=== PATIENT | male | born 1945 | race Two or more races ===

== ENCOUNTER → 2018-01-01 | Outpatient (REF) | payer MEDICARE ==
[2018-01-01 12:10] LABS: ANION GAP 8 MEQ/L (8-16); BLOOD UREA NITROGEN 18 MG/DL (7-18); CALCIUM LEVEL 8.8 MG/DL (8.8-10.2); CARBON DIOXIDE LEVEL 28 MEQ/L (21-32); CHLORIDE LEVEL 106 MEQ/L (98-107); CREATININE FOR GFR 0.81 MG/DL (0.70-1.30); GLOMERULAR FILTRATION RATE > 60.0 (>42); GLUCOSE, FASTING 101 MG/DL (70-100); POTASSIUM SERUM 5.1 MEQ/L (3.5-5.1); SODIUM LEVEL 142 MEQ/L (136-145)
== END ==
LOC: M SFHCCLAY 08:20
DX: E78.5 Hyperlipidemia, unspecified (principal); Z12.11 Encounter for screening for malignant neoplasm of colon
CPT/HCPCS: 80048

== ENCOUNTER → 2021-04-06 | Outpatient (CLI) | payer MEDICARE ==
--- NOTE | 2021-04-06 10:41 | REP ---
INDICATION: M25.552, LEFT HIP PAIN Nontraumatic hip pain. COMPARISON: None. TECHNIQUE: Frontal view of the pelvis with neutral and frog lateral views of the left hip. FINDINGS: Orthopedic fixation through the visualized lower lumbar spine and bilateral sacroiliac bones. Underlying age-related osteopenia and degenerative changes are appreciated. Left hip demonstrates relatively mild degenerative changes including increased sclerosis to the acetabular roof with mild joint space narrowing. No overt osteophytosis or periarticular calcifications/loose bodies. No acute fracture or dislocation. IMPRESSION: Generalized age-related degenerative changes. <Electronically signed by Moses Herrera > 04/06/21 1037
--- NOTE | 2021-04-06 11:49 | REP ---
INDICATION: M25.552, LEFT HIP PAIN COMPARISON: None TECHNIQUE: AP, lateral, bilateral oblique, and coned-down views of the lumbar spine. FINDINGS: Postsurgical changes including Lang rods through the lower thoracic through mid sacral level along with stabilization through the sacroiliac bones. Overlying diffuse wavy bridging osteophytosis and syndesmophytes are noted. Further chronic degenerative changes include endplate sclerosis, osteophytosis and disc space narrowing. IMPRESSION: Chronic appearing postsurgical and degenerative changes. <Electronically signed by Moses Herrera > 04/06/21 2401
== END ==
LOC: M CLY 09:33
PROVIDERS: ATTEND Family Medicine
DX: M85.88 Other specified disorders of bone density and structure, other site (principal); M51.36 Other intervertebral disc degeneration, lumbar region; M25.78 Osteophyte, vertebrae; M25.552 Pain in left hip

== ENCOUNTER → 2022-04-04 | Outpatient (CLI) | payer MEDICARE ==
[2022-04-04 11:20] LABS: HEMATOCRIT 43.9 % (42.0-52.0); HEMOGLOBIN 14.5 g/dl (13.5-17.5); MEAN CORPUSCULAR HEMOGLOBIN 32.2 pg (27.0-33.0); MEAN CORPUSCULAR VOLUME 97.6 fl (80.0-96.0); PLATELET COUNT, AUTOMATED 198 10^3/uL (150-450)
[2022-04-04 11:31] LABS: INR 0.98; PARTIAL THROMBOPLASTIN TIME 27.4 SECONDS (24.8-34.2); PROTHROMBIN TIME 13.2 SECONDS (12.5-14.5)
[2022-04-04 12:07] LABS: BLOOD UREA NITROGEN 22 MG/DL (9-23); CALCIUM LEVEL 8.9 MG/DL (8.3-10.6); CARBON DIOXIDE LEVEL 29 MMOL/L (20-31); CHLORIDE LEVEL 98 MMOL/L (98-107); CREATININE FOR GFR 0.92 MG/DL (0.70-1.30); GLOMERULAR FILTRATION RATE > 60.0 (>42); GLUCOSE, FASTING 110 MG/DL (74-106); POTASSIUM SERUM 4.2 MMOL/L (3.5-5.1); SODIUM LEVEL 137 MMOL/L (136-145)
== END ==
LOC: M CLY 09:13
PROVIDERS: ATTEND Orthopaedic Surgery
DX: Z01.818 Encounter for other preprocedural examination (principal); M47.14 Other spondylosis with myelopathy, thoracic region

== ENCOUNTER → 2022-04-06 | Outpatient (REF) | payer MEDICARE ==
[2022-04-06 17:51] LABS: APPEARANCE, URINE MANUAL CLEAR (CLEAR); BILIRUBIN, URINE MANUAL NEGATIVE (NEGATIVE); BLOOD URINE MANUAL NEGATIVE (NEGATIVE); COLOR, URINE MANUAL LT YELLOW (YELLOW); GLUCOSE, URINE (UA) MANUAL NEGATIVE (NEGATIVE); KETONE, URINE MANUAL NEGATIVE (NEGATIVE); LEUKOCYTE ESTERASE, URINE MAN NEGATIVE (NEGATIVE); NITRITE, URINE MANUAL NEGATIVE (NEGATIVE); PROTEIN, URINE MANUAL NEGATIVE (NEGATIVE); UROBILINOGEN, URINE MANUAL NORMAL (NORMAL)
== END ==
LOC: M SFHCCLAY 07:40
PROVIDERS: ATTEND Family Medicine
DX: Z01.818 Encounter for other preprocedural examination (principal); I10 Essential (primary) hypertension; E78.5 Hyperlipidemia, unspecified; M48.061 Spinal stenosis, lumbar region without neurogenic claudication; M47.14 Other spondylosis with myelopathy, thoracic region; Z79.899 Other long term (current) drug therapy

== ENCOUNTER → 2022-04-17 | Outpatient (CLI) | payer MEDICARE | LOC: M LABSMTC 09:12 | PROVIDERS: ATTEND Orthopaedic Surgery | DX: Z01.812 Encounter for preprocedural laboratory examination (principal); Z11.52 Encounter for screening for COVID-19 ==

== ENCOUNTER → 2022-08-29 | Outpatient (REF) | payer MEDICARE ==
[2022-08-29 12:07] LABS: BASO # 0.1 10^3/uL (0.0-0.2); BASO % 1.2 % (0.0-1.0); EOS # 0.2 10^3/uL (0.0-0.5); EOS % 4.2 % (0.0-3.0); HEMATOCRIT 43.3 % (42.0-52.0); HEMOGLOBIN 14.5 g/dl (13.5-17.5); LYMPH # 1.5 10^3/uL (1.5-5.0); LYMPH % 25.7 % (24.0-44.0); MEAN CORPUSCULAR HEMOGLOBIN 31.8 pg (27.0-33.0); MEAN CORPUSCULAR HGB CONC 33.5 g/dl (32.0-36.5); MONO # 0.9 10^3/uL (0.0-0.8); MONO % 15.4 % (2.0-8.0); NEUTROPHILS % 52.6 % (36.0-66.0); PLATELET COUNT, AUTOMATED 178 10^3/uL (150-450); RED BLOOD COUNT 4.56 10^6/uL (4.30-6.10); WHITE BLOOD COUNT 5.7 10^3/uL (4.0-10.0)
[2022-08-29 12:34] LABS: BLOOD UREA NITROGEN 17 MG/DL (9-23); CALCIUM LEVEL 8.6 MG/DL (8.3-10.6); CARBON DIOXIDE LEVEL 30 MMOL/L (20-31); CHLORIDE LEVEL 101 MMOL/L (98-107); CREATININE FOR GFR 0.94 MG/DL (0.70-1.30); GLOMERULAR FILTRATION RATE > 60.0 (>42); GLUCOSE, FASTING 103 MG/DL (74-106); POTASSIUM SERUM 4.4 MMOL/L (3.5-5.1); SODIUM LEVEL 137 MMOL/L (136-145)
== END ==
LOC: M SFHCCLAY 08:11
PROVIDERS: ATTEND Family Medicine
DX: M15.9 Polyosteoarthritis, unspecified (principal); I10 Essential (primary) hypertension

== ENCOUNTER → 2023-06-30 | Outpatient (REF) | payer MEDICARE ==
[2023-06-30 16:38] LABS: HEMOGLOBIN 15.3 g/dl (13.5-17.5); MEAN CORPUSCULAR HEMOGLOBIN 31.8 pg (27.0-33.0); MEAN CORPUSCULAR HGB CONC 33.3 g/dl (32.0-36.5); MEAN CORPUSCULAR VOLUME 95.6 fl (80.0-96.0); PLATELET COUNT, AUTOMATED 180 10^3/uL (150-450); RED BLOOD COUNT 4.81 10^6/uL (4.30-6.10); WHITE BLOOD COUNT 6.4 10^3/uL (4.0-10.0)
[2023-06-30 17:12] LABS: ALBUMIN 4.2 G/DL (3.2-5.2); ALKALINE PHOSPHATASE 71 U/L (46-116); ALT/SGPT 15 U/L (7.0-40); AST/SGOT 13 U/L (<34); BILIRUBIN,TOTAL 0.9 MG/DL (0.3-1.2); BLOOD UREA NITROGEN 17 MG/DL (9-23); CALCIUM LEVEL 9.2 MG/DL (8.3-10.6); CARBON DIOXIDE LEVEL 30 MMOL/L (20-31); CHLORIDE LEVEL 102 MMOL/L (98-107); CHOLESTEROL LEVEL 220 MG/DL (<200); CHOLESTEROL RISK RATIO 4.26 (<5); CREATININE FOR GFR 0.86 MG/DL (0.70-1.30); GLOMERULAR FILTRATION RATE > 60.0 (>42); GLUCOSE, FASTING 103 MG/DL (74-106); HDL CHOLESTEROL 51.6 MG/DL (>40); NON-HDL-C 168.4 MG/DL; SODIUM LEVEL 136 MMOL/L (136-145); TOTAL PROTEIN 6.8 G/DL (5.7-8.2); TRIGLYCERIDES LEVEL 122 MG/DL (<150)
[2023-06-30 17:15] LABS: PSA SCREENING 0.67 NG/ML (< 4.00)
== END ==
LOC: M SFHCCLAY 09:56
PROVIDERS: ATTEND Family Medicine
DX: Z12.5 Encounter for screening for malignant neoplasm of prostate (principal); Z96.651 Presence of right artificial knee joint; I10 Essential (primary) hypertension
CPT/HCPCS: 80053; 80061; 85027; G0103

== ENCOUNTER → 2023-07-04 | Outpatient (REF) | payer MEDICARE ==
[2023-07-04 13:10] LABS: APPEARANCE, URINE CLEAR (CLEAR); BACTERIA, URINE AUTO NEGATIVE (NEGATIVE); BILIRUBIN, URINE AUTO NEGATIVE (NEGATIVE); BLOOD, URINE BLOOD NEGATIVE (NEGATIVE); COLOR, URINE YELLOW (YELLOW); GLUCOSE, URINE (UA) AUTO NEGATIVE (NEGATIVE); KETONE, URINE AUTO NEGATIVE (NEGATIVE); LEUKOCYTE ESTERASE, URINE AUTO NEGATIVE (NEGATIVE); MUCUS, URINE SMALL (NEGATIVE); NITRITE, URINE AUTO NEGATIVE (NEGATIVE); PROTEIN, URINE AUTO NEGATIVE (NEGATIVE); RBC, URINE AUTO 0 /HPF (0-3); SPECIFIC GRAVITY URINE AUTO 1.017 (1.002-1.035); SQUAMOUS EPITHELIAL CELL UR AU 0 /HPF (0-6); UROBILINOGEN, URINE AUTO 0.2 mg/dL (0.0-2.0); WBC, URINE AUTO 0 /HPF (0-3)
== END ==
LOC: M SFHCCLAY 11:20
PROVIDERS: ATTEND Family Medicine
DX: I10 Essential (primary) hypertension (principal); Z96.651 Presence of right artificial knee joint

== ENCOUNTER → 2023-11-30 | Outpatient (CLI) | payer OTHER, MEDICARE | LOC: M SLEEP HO 10:50 | PROVIDERS: ATTEND Internal Medicine | DX: G47.33 Obstructive sleep apnea (adult) (pediatric) (principal) ==

== ENCOUNTER 2023-12-28 19:48 | Inpatient (IN) | payer OTHER, MEDICARE ==
[2023-12-28 21:27] LABS: BASO % 0.2 % (0.0-1.0); EOS % 0.1 % (0.0-3.0); HEMATOCRIT 25.7 % (42.0-52.0); HEMOGLOBIN 8.8 g/dl (13.5-17.5); LYMPH % 7.8 % (24.0-44.0); MEAN CORPUSCULAR HEMOGLOBIN 33.1 pg (27.0-33.0); MEAN CORPUSCULAR HGB CONC 34.2 g/dl (32.0-36.5); MEAN CORPUSCULAR VOLUME 96.6 fl (80.0-96.0); MONO # 0.9 10^3/uL (0.0-0.8); MONO % 7.1 % (2.0-8.0); NEUTROPHILS # 10.4 10^3/uL (1.5-8.5); NEUTROPHILS % 83.8 % (36.0-66.0); PLATELET COUNT, AUTOMATED 177 10^3/uL (150-450); RED BLOOD COUNT 2.66 10^6/uL (4.30-6.10); WHITE BLOOD COUNT 12.4 10^3/uL (4.0-10.0)
[2023-12-28 21:38] LABS: INR 1.09; PROTHROMBIN TIME 13.8 SECONDS (12.5-14.5)
[2023-12-28 22:01] LABS: LIPASE 60 U/L (12-53)
[2023-12-28 22:03] LABS: ALBUMIN 3.1 G/DL (3.2-5.2); ALKALINE PHOSPHATASE 50 U/L (46-116); ALT/SGPT 15 U/L (7.0-40); AST/SGOT 12 U/L (<34); BILIRUBIN,DIRECT 0.2 MG/DL (<0.4); BILIRUBIN,TOTAL 0.6 MG/DL (0.3-1.2); BLOOD UREA NITROGEN 68 MG/DL (9-23); CARBON DIOXIDE LEVEL 25 MMOL/L (20-31); CHLORIDE LEVEL 104 MMOL/L (98-107); CK-MB VALUE MASS 2.4 NG/ML (<3.6); CPK CREATINE PHOSPHOKINASE 59 U/L (46-171); CREATININE FOR GFR 0.91 MG/DL (0.70-1.30); GLOMERULAR FILTRATION RATE > 60.0 (>42); GLUCOSE, FASTING 117 MG/DL (74-106); MB/CK RELATIVE INDEX 4.06 (< OR =4); POTASSIUM SERUM 4.2 MMOL/L (3.5-5.1); SODIUM LEVEL 134 MMOL/L (136-145); TOTAL PROTEIN 5.4 G/DL (5.7-8.2)
[2023-12-28] MEDS: PANTOPRAZOLE 40MG VIAL IV ONE (23:00)
[2023-12-28] MEDS: NS 1,000 ML IV ONE (23:00)
[2023-12-29] VITALS (22 sets, daily range): BP systolic 110–142; BP diastolic 53–77; TEMP 97–98.7; O2SAT 83–100
[2023-12-29] MEDS ORDERED: ISOVUE-370 76% 100ML VIAL As Ordered ONE (01:12)
[2023-12-29] MEDS ORDERED: GNP1000T11 PO (01:44)
[2023-12-29] MEDS ORDERED: ASPI-655 PO (01:44)
[2023-12-29] MEDS ORDERED: MELO15TA28 PO (01:44)
[2023-12-29] MEDS ORDERED: CLAR10TA7 PO (01:44)
[2023-12-29] MEDS ORDERED: LISI10TA24 PO (01:44)
[2023-12-29] MEDS ORDERED: GARL500C6 PO (01:44)
[2023-12-29] MEDS ORDERED: FLON1SPR NARES (01:44)
[2023-12-29] MEDS ORDERED: FLOM0.4C39 PO (01:44)
[2023-12-29] MEDS ORDERED: RA K500C PO (01:44)
[2023-12-29] MEDS ORDERED: HOME MED LIST COMPLETE! XX SCH (01:45)
[2023-12-29] MEDS ORDERED: ACETAMINOPHEN TAB 650MG DOSE (2X325MG) PO PRN (02:15)
[2023-12-29] MEDS ORDERED: LORazepam 2 MG TAB PO PRN (02:15)
[2023-12-29] MEDS ORDERED: MOM 30ML SUSPENSION UDC PO PRN (02:15)
[2023-12-29] MEDS ORDERED: MAALOX 30 ML SUSP *UDC PO PRN (02:15)
[2023-12-29 04:23] LABS: MAGNESIUM LEVEL 1.6 MG/DL (1.8-2.4)
[2023-12-29] MEDS: NS 1,000 ML IV SCH (04:23)
[2023-12-29 04:27] LABS: THYROID STIMULATING HORMONE 0.811 uIU/ML (0.55-4.78)
[2023-12-29 04:32] LABS: D-DIMER QUANT 0.41 ug/mL (<0.5); INR 1.15; PARTIAL THROMBOPLASTIN TIME 25.4 SECONDS (24.8-34.2); PROCALCITONIN 0.14 ng/ml; PROTHROMBIN TIME 14.4 SECONDS (12.5-14.5)
[2023-12-29] MEDS: MAGNESIUM OXIDE 400MG TAB (MAG-OX) PO ONE (05:10)
[2023-12-29 05:15] LABS: RSV AMPLIFICATION NEGATIVE (NEGATIVE)
[2023-12-29 06:17] LABS: HEMATOCRIT 24.9 % (42.0-52.0); HEMOGLOBIN 8.4 g/dl (13.5-17.5)
[2023-12-29 08:53] LABS: PERCENT SATURATION 89.6 % (19.7-50.0)
[2023-12-29 08:55] LABS: FERRITIN 35.1 NG/ML (10.5-307.3)
[2023-12-29 08:56] LABS: FOLATE 13.94 NG/ML (>5.4)
[2023-12-29] MEDS ORDERED: DOCUSATE SODIUM 100MG CAPSULE PO SCH (09:00)
[2023-12-29] MEDS: FOLIC ACID 1MG TAB PO SCH (09:16)
[2023-12-29] MEDS: TAMSULOSIN 0.4 MG CAP PO SCH (09:16)
[2023-12-29] MEDS: THIAMINE 100 MG TAB PO SCH (09:16)
[2023-12-29] MEDS: PANTOPRAZOLE 40MG VIAL IV SCH (09:16)
[2023-12-29] MEDS: MULTIVITAMINS/MINERALS THERAP 1 TAB PO SCH (09:16)
[2023-12-29] MEDS: MAG SULF 1GM/100ML (MAG RUN) 1 GM in IV 1 EA IV ONE (09:17)
[2023-12-29 12:00] LABS: HEMATOCRIT 22.5 % (42.0-52.0); HEMOGLOBIN 7.6 g/dl (13.5-17.5)
[2023-12-29] MEDS: SUCRALFATE SUSP 1GM/10ML UD PO SCH (12:00)
[2023-12-29 19:13] LABS: HEMATOCRIT 23.6 % (42.0-52.0); HEMOGLOBIN 7.7 g/dl (13.5-17.5)
[2023-12-29] MEDS: MAGNESIUM OXIDE 400MG TAB (MAG-OX) PO SCH (22:02)
[2023-12-30] VITALS: BP 119/57; TEMP 98.8; O2SAT 94; O2SAT 95
[2023-12-30 00:53] LABS: HEMATOCRIT 27.7 % (42.0-52.0); HEMOGLOBIN 9.4 g/dl (13.5-17.5)
[2023-12-30 01:00] VITALS: O2SAT 96
[2023-12-30 03:42] VITALS: BP 135/80; TEMP 97.6; O2SAT 97
[2023-12-30 05:44] LABS: HEMATOCRIT 27.6 % (42.0-52.0); HEMOGLOBIN 9.4 g/dl (13.5-17.5); MEAN CORPUSCULAR HEMOGLOBIN 30.8 pg (27.0-33.0); MEAN CORPUSCULAR HGB CONC 34.1 g/dl (32.0-36.5); MEAN CORPUSCULAR VOLUME 90.5 fl (80.0-96.0); PLATELET COUNT, AUTOMATED 133 10^3/uL (150-450); RED BLOOD COUNT 3.05 10^6/uL (4.30-6.10); WHITE BLOOD COUNT 5.7 10^3/uL (4.0-10.0)
[2023-12-30 05:47] LABS: BASO # 0.1 10^3/uL (0.0-0.2); EOS # 0.3 10^3/uL (0.0-0.5); HEMATOCRIT 27.9 % (42.0-52.0); HEMOGLOBIN 9.4 g/dl (13.5-17.5); LYMPH # 1.3 10^3/uL (1.5-5.0); LYMPH % 22.5 % (24.0-44.0); MEAN CORPUSCULAR HEMOGLOBIN 30.8 pg (27.0-33.0); MEAN CORPUSCULAR HGB CONC 33.7 g/dl (32.0-36.5); MEAN CORPUSCULAR VOLUME 91.5 fl (80.0-96.0); MONO # 0.5 10^3/uL (0.0-0.8); MONO % 9.2 % (2.0-8.0); NEUTROPHILS # 3.5 10^3/uL (1.5-8.5); NEUTROPHILS % 61.3 % (36.0-66.0); PLATELET COUNT, AUTOMATED 129 10^3/uL (150-450); RED BLOOD COUNT 3.05 10^6/uL (4.30-6.10); WHITE BLOOD COUNT 5.8 10^3/uL (4.0-10.0)
[2023-12-30 06:05] LABS: ALBUMIN 2.6 G/DL (3.2-5.2); ALKALINE PHOSPHATASE 43 U/L (46-116); ALT/SGPT 14 U/L (7.0-40); AST/SGOT 14 U/L (<34); BILIRUBIN,TOTAL 1.5 MG/DL (0.3-1.2); BLOOD UREA NITROGEN 23 MG/DL (9-23); CALCIUM LEVEL 7.7 MG/DL (8.3-10.6); CARBON DIOXIDE LEVEL 26 MMOL/L (20-31); CHLORIDE LEVEL 112 MMOL/L (98-107); GLOMERULAR FILTRATION RATE > 60.0 (>42); GLUCOSE, FASTING 93 MG/DL (74-106); MAGNESIUM LEVEL 1.9 MG/DL (1.8-2.4); POTASSIUM SERUM 3.9 MMOL/L (3.5-5.1); SODIUM LEVEL 142 MMOL/L (136-145); TOTAL PROTEIN 4.6 G/DL (5.7-8.2)
[2023-12-30 07:54] VITALS: BP 149/67; TEMP 97.6; O2SAT 96
[2023-12-30 12:06] LABS: HEMATOCRIT 29.2 % (42.0-52.0); HEMOGLOBIN 9.8 g/dl (13.5-17.5)
[2023-12-30 15:38] VITALS: BP 152/70; TEMP 97.6; O2SAT 98
[2023-12-30 20:57] LABS: HEMATOCRIT 28.2 % (42.0-52.0); HEMOGLOBIN 9.6 g/dl (13.5-17.5)
[2023-12-30] MEDS: ANUSOL HC CREAM 30GM TOP SCH (21:00)
[2023-12-30 22:05] VITALS: BP 113/49; TEMP 97.7; O2SAT 97
[2023-12-31 04:30] VITALS: BP 128/64; TEMP 97.3; O2SAT 96
[2023-12-31 06:45] LABS: BASO % 0.5 % (0.0-1.0); EOS # 0.4 10^3/uL (0.0-0.5); EOS % 6.8 % (0.0-3.0); HEMATOCRIT 27.5 % (42.0-52.0); HEMOGLOBIN 9.3 g/dl (13.5-17.5); LYMPH # 1.2 10^3/uL (1.5-5.0); LYMPH % 21.3 % (24.0-44.0); MEAN CORPUSCULAR HEMOGLOBIN 31.3 pg (27.0-33.0); MEAN CORPUSCULAR HGB CONC 33.8 g/dl (32.0-36.5); MEAN CORPUSCULAR VOLUME 92.6 fl (80.0-96.0); MONO # 0.6 10^3/uL (0.0-0.8); MONO % 10.3 % (2.0-8.0); NEUTROPHILS # 3.4 10^3/uL (1.5-8.5); NEUTROPHILS % 59.7 % (36.0-66.0); PLATELET COUNT, AUTOMATED 145 10^3/uL (150-450); RED BLOOD COUNT 2.97 10^6/uL (4.30-6.10); WHITE BLOOD COUNT 5.7 10^3/uL (4.0-10.0)
[2023-12-31 07:07] LABS: BLOOD UREA NITROGEN 15 MG/DL (9-23); CALCIUM LEVEL 7.8 MG/DL (8.3-10.6); CARBON DIOXIDE LEVEL 29 MMOL/L (20-31); CHLORIDE LEVEL 109 MMOL/L (98-107); CREATININE FOR GFR 0.87 MG/DL (0.70-1.30); GLOMERULAR FILTRATION RATE > 60.0 (>42); GLUCOSE, FASTING 99 MG/DL (74-106); POTASSIUM SERUM 4.1 MMOL/L (3.5-5.1); SODIUM LEVEL 140 MMOL/L (136-145)
[2023-12-31] MEDS ORDERED: ACET-897 PO (09:33)
[2023-12-31] MEDS ORDERED: B-12100021 PO (09:33)
[2023-12-31] MEDS ORDERED: FERR325T3 PO (09:33)
[2023-12-31] MEDS ORDERED: SENN1TAB85 PO (09:33)
[2023-12-31] MEDS ORDERED: SUCR1TA PO (09:33)
[2023-12-31] MEDS ORDERED: PANT40TA29 PO (09:33)
== END 2023-12-31 11:05 | disposition home or self-care (01) | DRG 378 ==
LOC: M ED 19:48 → M ED INP 12-29 02:13 → M PCU 12-29 15:57 → M MS5PR 12-30 18:05
PROVIDERS: ADMIT Preventive Medicine Undersea and Hyperbaric Medicine; ATTEND Internal Medicine Nephrology
PROC: 30233N1 Transfusion of Nonautologous Red Blood Cells into Peripheral Vein, Percutaneous Approach (ICD-10-PCS; principal; 2023-12-28)
DX: K92.2 Gastrointestinal hemorrhage, unspecified (principal); D62 Acute posthemorrhagic anemia; I10 Essential (primary) hypertension; N40.1 Benign prostatic hyperplasia with lower urinary tract symptoms; M51.36 Other intervertebral disc degeneration, lumbar region; M19.90 Unspecified osteoarthritis, unspecified site; K64.9 Unspecified hemorrhoids; F10.10 Alcohol abuse, uncomplicated; R53.1 Weakness; E83.42 Hypomagnesemia; K76.0 Fatty (change of) liver, not elsewhere classified; K40.20 Bilateral inguinal hernia, without obstruction or gangrene, not specified as recurrent; E61.1 Iron deficiency; Z79.82 Long term (current) use of aspirin; Z98.1 Arthrodesis status; Z79.899 Other long term (current) drug therapy; Z96.651 Presence of right artificial knee joint; Z87.891 Personal history of nicotine dependence; Z79.1 Long term (current) use of non-steroidal anti-inflammatories (NSAID)

== ENCOUNTER → 2024-02-11 | Outpatient (CLI) | payer MEDICARE, OTHER ==
[~2024-02-11] MED LIST: ACET-897 PO; ASPI-655 PO; B-12100021 PO; CLAR10TA7 PO; FERR325T3 PO; FLOM0.4C39 PO; FLON1SPR NARES; GARL500C6 PO; GNP1000T11 PO; LISI10TA24 PO; MELO15TA28 PO; PANT40TA29 PO; RA K500C PO; SENN1TAB85 PO; SUCR1TA PO
== END ==
LOC: M SLEEP 20:00
PROVIDERS: ATTEND Internal Medicine
DX: R06.83 Snoring (principal)

== ENCOUNTER 2024-03-21 09:14 | Day surgery (SDC) | payer MEDICARE, OTHER ==
[~2024-03-21] VITALS: Ht 167.6 cm; Wt 73.6 kg
[~2024-03-21 09:14] MED LIST changes: +PHENYLEPHRINE 10% OPHTH SOL 5ML OS PRN
[2024-03-21] MEDS ORDERED: fentaNYL 100 MCG/2 ML INJECTION As Ordered ONE (09:57)
[2024-03-21] MEDS: OFLOXACIN 0.3 % (OCUFLOX) OPTH SOL 5ML OS ONE (11:04)
[2024-03-21] MEDS: ATROPINE SULFATE 1% OPHTH SOLN 2ML BTL OS SCH (11:04)
[2024-03-21] MEDS: LIDOCAINE 3.5 % 1ML OPHTH TOPICAL GEL OU ONE (11:04)
[2024-03-21] MEDS: PHENYLEPHRINE 2.5% OPHTH SOL 2ML OS SCH (11:04)
[2024-03-21] MEDS: TROPICAMIDE 1% OPHTH SOLN 15ML OS SCH (11:04)
[2024-03-21] MEDS ORDERED: DULO1CAP5 PO (11:14)
[2024-03-21] MEDS ORDERED: THERTAB52 PO (11:14)
[2024-03-21] MEDS: BSS IRRIG/VANCO(10MG)/TOBRA(5MG)/EPINEPH(1:1000-0.5CC)500ML BAG-ORONLY As Ordered ONE (12:00)
[2024-03-21] MEDS: CEFUROXIME 1MG/0.1ML INTRACAMERAL INJ As Ordered ONE (12:00)
[2024-03-21] MEDS: LIDOCAINE 1% SDV 5ML VIAL As Ordered ONE (12:00)
[2024-03-21 12:10] VITALS: BP 116/62; TEMP 97.6; O2SAT 100
== END 2024-03-21 12:22 | disposition home or self-care (01) ==
LOC: M SDC 09:14
PROVIDERS: ATTEND Ophthalmology
DX: H25.12 Age-related nuclear cataract, left eye (principal); I10 Essential (primary) hypertension; N40.0 Benign prostatic hyperplasia without lower urinary tract symptoms; Z79.899 Other long term (current) drug therapy; Z79.82 Long term (current) use of aspirin; Z98.1 Arthrodesis status
CPT/HCPCS: 66984; J0697; J3010; V2632

== ENCOUNTER 2024-04-18 06:38 | Day surgery (SDC) | payer MEDICARE, OTHER ==
[~2024-04-18] VITALS: Ht 167.6 cm; Wt 73.9 kg
[~2024-04-18 06:38] MED LIST changes: +DULO1CAP5 PO; +PHENYLEPHRINE 10% OPHTH SOL 5ML OD PRN; -PHENYLEPHRINE 10% OPHTH SOL 5ML OS PRN; +THERTAB52 PO
[2024-04-18] MEDS: LIDOCAINE 3.5 % 1ML OPHTH TOPICAL GEL OU ONE (07:00)
[2024-04-18] MEDS: OFLOXACIN 0.3 % (OCUFLOX) OPTH SOL 5ML OD ONE (07:00)
[2024-04-18] MEDS ORDERED: fentaNYL 100 MCG/2 ML INJECTION As Ordered ONE (07:06)
[2024-04-18] MEDS ORDERED: MIDAZOLAM INJ 2MG/2ML VIAL As Ordered ONE (07:06)
[2024-04-18] MEDS: CYCLOPENTOLATE 1% OPHTH SOLN 2ML BTL OD SCH (07:43)
[2024-04-18] MEDS: TROPICAMIDE 1% OPHTH SOLN 15ML OD SCH (07:43)
[2024-04-18] MEDS: PHENYLEPHRINE 2.5% OPHTH SOL 2ML OD SCH (07:43)
[2024-04-18] MEDS: LIDOCAINE 1% SDV 5ML VIAL As Ordered ONE (08:28)
[2024-04-18] MEDS: BSS IRRIG/VANCO(10MG)/TOBRA(5MG)/EPINEPH(1:1000-0.5CC)500ML BAG-ORONLY As Ordered ONE (08:31)
[2024-04-18] MEDS: CEFUROXIME 1MG/0.1ML INTRACAMERAL INJ As Ordered ONE (08:38)
[2024-04-18 08:44] VITALS: BP 126/65; TEMP 97.2; O2SAT 96
== END 2024-04-18 08:56 | disposition home or self-care (01) ==
LOC: M SDC 06:38
PROVIDERS: ATTEND Ophthalmology
DX: H25.11 Age-related nuclear cataract, right eye (principal); I10 Essential (primary) hypertension; N40.0 Benign prostatic hyperplasia without lower urinary tract symptoms; Z79.899 Other long term (current) drug therapy; Z79.82 Long term (current) use of aspirin; Z98.1 Arthrodesis status
CPT/HCPCS: 66984; J0697; J2250; J3010; V2632

== ENCOUNTER → 2024-04-22 | Outpatient (CLI) | payer OTHER, MEDICARE ==
[~2024-04-22] MED LIST changes: -PHENYLEPHRINE 10% OPHTH SOL 5ML OD PRN
== END ==
LOC: M PLAIMG 10:23
PROVIDERS: ATTEND Internal Medicine Cardiovascular Disease
DX: I08.3 Combined rheumatic disorders of mitral, aortic and tricuspid valves (principal); R94.31 Abnormal electrocardiogram [ECG] [EKG]; I45.19 Other right bundle-branch block; I27.20 Pulmonary hypertension, unspecified

== ENCOUNTER → 2024-06-17 | Outpatient (REF) | payer MEDICARE | LOC: M SFHCCLAY 08:37 | PROVIDERS: ATTEND Physician Assistant | DX: Z12.5 Encounter for screening for malignant neoplasm of prostate (principal) ==

== ENCOUNTER 2024-09-26 09:34 | Emergency (ER) | payer OTHER, MEDICARE ==
[~2024-09-26] VITALS: Ht 188 cm; Wt 79.9 kg
[~2024-09-26 09:34] MED LIST changes: -FLOM0.4C39 PO; +TAMS-18 PO
[2024-09-26 09:40] VITALS: TEMP 99.2
[2024-09-26] MEDS ORDERED: ACET-683 PO (09:45)
[2024-09-26 11:10] LABS: APPEARANCE, URINE CLEAR (CLEAR); BACTERIA, URINE AUTO NEGATIVE (NEGATIVE); BILIRUBIN, URINE AUTO NEGATIVE (NEGATIVE); BLOOD, URINE BLOOD 1+ (NEGATIVE); COLOR, URINE YELLOW (YELLOW); GLUCOSE, URINE (UA) AUTO NEGATIVE (NEGATIVE); KETONE, URINE AUTO NEGATIVE (NEGATIVE); LEUKOCYTE ESTERASE, URINE AUTO NEGATIVE (NEGATIVE); NITRITE, URINE AUTO NEGATIVE (NEGATIVE); PROTEIN, URINE AUTO NEGATIVE (NEGATIVE); RBC, URINE AUTO 0 /HPF (0-3); SPECIFIC GRAVITY URINE AUTO 1.011 (1.002-1.035); SQUAMOUS EPITHELIAL CELL UR AU 0 /HPF (0-6); UROBILINOGEN, URINE AUTO 0.2 mg/dL (0.0-2.0); WBC, URINE AUTO 1 /HPF (0-3)
[2024-09-26 11:23] LABS: HEMATOCRIT 39.4 % (42.0-52.0); HEMOGLOBIN 13.5 g/dl (13.5-17.5); LYMPH # 0.5 10^3/uL (1.5-5.0); LYMPH % 15.5 % (24.0-44.0); MEAN CORPUSCULAR HGB CONC 34.3 g/dl (32.0-36.5); MEAN CORPUSCULAR VOLUME 93.4 fl (80.0-96.0); MONO # 0.3 10^3/uL (0.0-0.8); MONO % 10.2 % (2.0-8.0); NEUTROPHILS # 2.2 10^3/uL (1.5-8.5); NEUTROPHILS % 71.3 % (36.0-66.0); PLATELET COUNT, AUTOMATED 117 10^3/uL (150-450); RED BLOOD COUNT 4.22 10^6/uL (4.30-6.10)
[2024-09-26 11:33] LABS: CREATININE FOR GFR 0.87 MG/DL (0.70-1.30); GLOMERULAR FILTRATION RATE 88.9 (>42); POTASSIUM SERUM 3.5 MMOL/L (3.5-5.1)
[2024-09-26] MEDS ORDERED: ISOVUE-370 76% 100ML VIAL As Ordered ONE (11:44)
[2024-09-26 12:05] LABS: ALBUMIN 3.1 G/DL (3.2-5.2); BILIRUBIN,DIRECT 0.1 MG/DL (<0.4); BILIRUBIN,TOTAL 0.5 MG/DL (0.3-1.2); TOTAL PROTEIN 5.9 G/DL (5.7-8.2)
[2024-09-26] MEDS: NS 500 ML IV ONE (12:30)
[2024-09-26] MEDS ORDERED: OMEP40CA4 PO (13:45)
[2024-09-26 14:30] VITALS: BP 138/84; O2SAT 98
== END 2024-09-26 14:45 | disposition home or self-care (01) ==
LOC: M ED 09:34
DX: A08.4 Viral intestinal infection, unspecified (principal); Q25.46 Tortuous aortic arch; I70.0 Atherosclerosis of aorta; K57.30 Diverticulosis of large intestine without perforation or abscess without bleeding; K40.21 Bilateral inguinal hernia, without obstruction or gangrene, recurrent; I10 Essential (primary) hypertension; N40.0 Benign prostatic hyperplasia without lower urinary tract symptoms; Z87.19 Personal history of other diseases of the digestive system; Z79.82 Long term (current) use of aspirin; Z79.899 Other long term (current) drug therapy
CPT/HCPCS: 71045; 74177; 80048; 80076; 81001; 83605; 83690; 85025; 87040; 87486; 87581; 87633; 87798; 96360; 99284; Q9967

== ENCOUNTER 2024-12-31 11:10 | Day surgery (SDC) | payer OTHER, MEDICARE ==
[~2024-12-31] VITALS: Ht 167.6 cm; Wt 70.0 kg
[~2024-12-31 11:10] MED LIST changes: +ACET-683 PO; +OMEP40CA4 PO
[2024-12-31] MEDS ORDERED: PHENYLephrine 500MCG 5ML (100MCG/ML) SYRINGE As Ordered ONE (12:28)
[2024-12-31 12:39] VITALS: TEMP 98.2
[2024-12-31 13:02] VITALS: BP 139/77; O2SAT 95
== END 2024-12-31 13:11 | disposition home or self-care (01) ==
LOC: M OPP 11:10
PROVIDERS: ATTEND Surgery
DX: K63.5 Polyp of colon (principal); K57.30 Diverticulosis of large intestine without perforation or abscess without bleeding; D50.9 Iron deficiency anemia, unspecified; K44.9 Diaphragmatic hernia without obstruction or gangrene; K21.00 Gastro-esophageal reflux disease with esophagitis, without bleeding; Z79.899 Other long term (current) drug therapy
CPT/HCPCS: 43239; 45380; 88305; J2371; J3010